=== PATIENT | male | born 1950 | race African-American/Black ===

== ENCOUNTER → 2016-05-10 | Outpatient (CLI) | payer MEDICARE, OTHER ==
[~2016-05-10] MED LIST: ACYCLOVIR400 MG ORAL; NORCO 5-325 TA1 EAC1 ORAL; SINGULAIR10 MG ORAL; SOMA350 MG PO; VALACYCLOVIR500 MG ORAL
--- NOTE | 2016-05-10 13:46 | GI Progress Note ---
Assessment/Plan Problems: (1) Hepatitis C ICD Codes: B19.20 - Unspecified viral hepatitis C without hepatic coma SNOMED: 94355473 (2) Diverticulosis ICD Codes: K57.90 - Diverticulosis of intestine, part unspecified, without perforation or abscess without bleeding SNOMED: 736705305 (3) Colon polyps ICD Codes: K63.5 - Polyp of colon SNOMED: 30680507 Status: stable Status Narrative Seen with Dr. Diana. Assessment/Plan s/p Hep C tx x 6 months >> Trini lab draw: s/p hep C post quant RTC x 2 weeks/prn Subjective Gastrointestinal/Abdominal: Reports: no symptoms Subjective pt here to recheck Hep C s/p tx. Objective T 98 BP 137/86 P 62 100 RA Intentional weight loss -6 lbs General Appearance: alert Cardiovascular: normal rate Respiratory/Chest: normal breath sounds, no respiratory distress Abdominal Exam: normal bowel sounds, non tender, soft Extremities: normal range of motion Keke Piper N.P. May 10, 2016 13:46
[2016-05-10 16:08] VITALS: BP 137/86
[2016-05-16 08:42] LABS: HEPATITIS C QUANT HCV Not Detected IU/mL (.)
== END | disposition home or self-care (01) ==
LOC: PAN 12:49
DX: B19.20 Unspecified viral hepatitis C without hepatic coma (principal); K57.90 Diverticulosis of intestine, part unspecified, without perforation or abscess without bleeding; K63.5 Polyp of colon
CPT/HCPCS: 36415; 87522; G0463; 99211

== ENCOUNTER 2016-11-01 13:14 | Outpatient (CLI) | payer MEDICARE, OTHER ==
--- NOTE | 2016-11-01 14:29 | GI Progress Note ---
Assessment/Plan Problems: (1) Hepatitis C ICD Codes: B19.20 - Unspecified viral hepatitis C without hepatic coma SNOMED: 57079828 Status: stable Status Narrative Seen with Dr. Diana. Assessment/Plan s/p Tr[facility] repeat lab draw #2 >> Hep C quant will contact patient RTC prn Subjective Gastrointestinal/Abdominal: Reports: no symptoms Objective T 98.3 BP 139/85 P 63 100 RA General Appearance: no apparent distress, alert Cardiovascular: normal rate Respiratory/Chest: normal breath sounds, no respiratory distress Abdominal Exam: normal bowel sounds, non tender, soft Extremities: normal range of motion Keke Piper N.P. Nov 01, 2016 14:29
== END 2016-11-01 14:00 | disposition home or self-care (01) ==
LOC: PAN 13:14
DX: B19.20 Unspecified viral hepatitis C without hepatic coma (principal)
CPT/HCPCS: 36415; 87522; G0463; 99211